=== PATIENT | female | born 1955 | race Caucasian/White ===

== ENCOUNTER 2016-12-03 07:44 | Observation (INO) ==
[2016-12-03] MEDS ORDERED: Ondansetron 4 MG/2 ML VIAL ONE (07:53)
[2016-12-03] MEDS ORDERED: *HR* Morphine 2 MG/ML SYRINGE IVP ONE (07:55)
[2016-12-03] MEDS ORDERED: 0.9 % Sodium Chloride 1,000 ML IVC ONE ×2 (07:55→08:58)
[2016-12-03] MEDS ORDERED: Metoclopramide 10 MG/2 ML VIAL IVP ONE (07:58)
[2016-12-03 08:01] LABS: Basophils # 0.1 K/mcL (0.0-0.2); Basophils % 0.6 %; Eosinophils # 0.2 K/mcL (0.0-0.6); Eosinophils % 1.6 %; Hematocrit 41.6 % (35.3-44.9); Hemoglobin 13.3 g/dL (11.5-15.4); Immature Granulocytes % 0.5 % (0-4); Lymphocytes # 2.1 K/mcL (0.6-4.6); Mean Corpuscular Hemoglobin 25.6 pg (28.0-33.3); Mean Corpuscular Volume 80.2 fL (83.0-100.0); Mean Platelet Volume 9.2 fL (9.4-12.4); Monocytes # 0.7 K/mcL (0.0-1.3); Monocytes % 5.9 %; Neutrophils # 9.2 K/mcL (1.6-8.9); Platelet Count 329 K/mcL (140-400); Red Blood Count 5.19 M/mcL (3.82-4.97); Red Cell Distribution Width 14.2 % (11.5-14.5); Segmented Neutrophils % 74.4 %
--- NOTE | 2016-12-03 08:01 | Emergency Department Note ---
Disposition Clinical Impression: Abdominal pain Qualifiers: Abdominal location: unspecified location Qualified Code(s): R10.9 - Unspecified abdominal pain Nausea & vomiting Qualifiers: Vomiting type: unspecified Vomiting Intractability: unspecified Qualified Code( s): R11.2 - Nausea with vomiting, unspecified Disposition: Admitted As Inpatient Condition: Fair Abdominal Pain HPI - General Chief Complaint: ED Abdominal Pain Stated Complaint: ABD pain Time Seen by Provider: 12/03/16 07:48 Source: patient, family Mode of arrival: ambulatory Limitations: no limitations Nursing Notes Reviewed: Yes Vital Signs Reviewed: Yes - History of Present Illness HPI Narrative: Patient here for evaluation of abdominal pain that started yesterday. Patient has had severe nausea and vomiting all night. Patient has had one episode of diarrhea. No blood in vomit or diarrhea. Patient states she has never had anything quite like this before. Patient has history of colitis and there is concern by her family member that she may have ulcerative colitis. Patient was recently started 2 days ago on metformin. No sick contacts. Appendectomy and hysterectomy in the past. Bradycardic on exam with no anti-hypertensives likely be responsible. Patient does complain of significant dizziness. Pain Scale: 10 - Related Data Home Medications Medication Instructions Recorded Confirmed Aspirin 162 mg PO DAILY 10/26/15 12/03/16 Citalopram [CeleXA] 60 mg PO DAILY 10/26/15 12/03/16 Omeprazole 20 mg PO DAILY 10/26/15 12/03/16 Simvastatin [Zocor] 40 mg PO HS 10/26/15 12/03/16 hydroCHLOROthiazide 25 mg PO DAILY 10/26/15 12/03/16 [Hydrochlorothiazide] Multivits Min/Iron/FA/Herb#186 1 tab PO DAILY 11/05/15 12/03/16 [Hair, Skin and Nails Caplet] Budesonide [Entocort EC] 3 mg PO DAILY 12/03/16 12/03/16 Cholecalciferol (D-3) [Vitamin D] 1,000 unit PO DAILY 12/03/16 12/03/16 Metformin HCl [Metformin HCl ER] 500 mg PO DAILY 12/03/16 12/03/16 Allergies Allergy/AdvReac Type Severity Reaction Status Date / Time ciprofloxacin [From Cipro] AdvReac Anxiety Verified 12/03/16 09:57 Review of Systems: CONSTITUTIONAL: Diaphoresis, weakness, and fatigue No weight loss, fever, chills, . HEENT: Eyes: No visual changes. Ears, Nose, Throat: No hearing loss, difficulty talking or unable to swallow. SKIN: No rash or itching. CARDIOVASCULAR: No chest pain, chest pressure or chest discomfort. No palpitations or edema. RESPIRATORY: No shortness of breath, cough or sputum. GASTROINTESTINAL: Abdominal pain, nausea, vomiting GENITOURINARY: No burning on urination or hematuria. NEUROLOGICAL: No headache, dizziness, syncope, paralysis, ataxia, numbness or tingling in the extremities. No change in bowel or bladder control. MUSCULOSKELETAL: No muscle pain, back pain, joint pain or stiffness. 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 conversant Eyes: anicteric sclerae, moist conjunctivae; PERRL HENT: Atraumatic; oropharynx clear with moist mucous membranes and no mucosal ulcerations Neck: Normal inspection; Trachea midline; FROM, supple Lungs: CTA, with normal respiratory effort and no intercostal retractions CV: RRR, no MRGs Abdomen: Soft, mild tenderness to the left lower quadrant; no rebound or gaurding Extremities: No peripheral edema or extremity lymphadenopathy Skin: Normal temperature; no rash, ulcers or lesions Psych: Appropriate mood and affect Neuro: alert and oriented to person, place and time - General Limitations: no limitations General appearance: alert - Expanded Neurological Exam Patient oriented to: Present: person, place, time Speech: Present: fluid speech Cranial nerves: EOM function (II, III, IV, ): Normal, facial sensation (V): Normal, facial palsy (VII): Normal, gag reflex (IX): Normal, spinal accessory function (XI): Normal, tongue deviation (XII): Normal Cerebellar function: finger to nose: Normal, heel to mcgill: Normal Motor strength - LUE: 5/5 Motor strength - RUE: 5/5 Motor strength - LLE: 5/5 Motor strength - RLE: 5/5 Sensory exam upper extremity: light touch: Normal Sensory exam lower extremity: light touch: Normal Coma Scale Eye Opening: Spontaneous Coma Scale Motor Response: Obeys Commands Coma Scale Verbal Response: Oriented Coma Scale Total: 15 Course Vital Signs Temperature 97.5 F L 12/03/16 07:46 Pulse Rate 60 12/03/16 07:46 Respiratory Rate 16 12/03/16 07:46 Blood Pressure 158/137 12/03/16 07:46 O2 Sat by Pulse Oximetry 100 12/03/16 07:46 Temperature 97.7 F 12/03/16 15:24 Pulse Rate 60 12/03/16 15:24 Respiratory Rate 16 12/03/16 15:24 Blood Pressure 112/76 12/03/16 15:24 O2 Sat by Pulse Oximetry 94 12/03/16 15:24 Oxygen Delivery Oxygen Delivery Nasal Cannula Abdominal Pain - Medical Records Medical records reviewed: Yes I reviewed the patient's medical records. - Lab Data Lab results reviewed: Yes I reviewed the patient's lab results. Result diagrams: 12/03/16 07:50 12/03/16 07:50 Lab Results 12/03/16 12/03/16 12/03/16 Range/Units 07:50 07:50 07:50 WBC 12.3 H (4.3-11.1) K/mcL RBC 5.19 H (3.82-4.97) M/mcL Hgb 13.3 (11.5-15.4) g/dL Hct 41.6 (35.3-44.9) % MCV 80.2 L (83.0-100.0) fL MCH 25.6 L (28.0-33.3) pg MCHC 32.0 (31.6-35.5) g/dL RDW 14.2 (11.5-14.5) % Plt Count 329 (140-400) K/mcL MPV 9.2 L (9.4-12.4) fL Immature Gran % 0.5 (0-4) % Seg Neutrophils % 74.4 % Lymphocytes % 17.0 % Monocytes % 5.9 % Eosinophils % 1.6 % Basophils % 0.6 % Neutrophils # 9.2 H (1.6-8.9) K/mcL Lymphocytes # 2.1 (0.6-4.6) K/mcL Monocytes # 0.7 (0.0-1.3) K/mcL Eosinophils # 0.2 (0.0-0.6) K/mcL Basophils # 0.1 (0.0-0.2) K/mcL Sodium 142 (136-145) mEq/L Potassium 3.5 (3.5-4.5) mEq/L Chloride 102 (98-109) mEq/L Carbon Dioxide 29 (19-29) mEq/L BUN 13 (7-20) mg/dL Creatinine 1.03 (0.57-1.11) mg/dL Est GFR ( Amer) > 60 (> 60) Est GFR (Non-Af Amer) 55 L (> 60) BUN/Creatinine Ratio 13 (6-26) Glucose 161 H (70-99) mg/dL Calculated Osmolality 298 (280-300) Lactic Acid 2.5 H (0.5-2.2) mmol/L Calcium 10.5 (8.6-10.8) mg/dL Total Bilirubin 0.9 (0.2-1.2) mg/dL Direct Bilirubin 0.3 (0.0-0.5) mg/dL Indirect Bilirubin 0.6 (0.0-1.2) mg/dL AST 30 (5-34) Units/L ALT 31 (0-55) Units/L Alkaline Phosphatase 100 (38-126) Units/L Troponin I (0-0.03) ng/mL Serum Total Protein 8.0 (6.0-8.3) g/dL Albumin 4.2 (3.5-5.0) g/dL Globulin 3.8 H (2.4-3.5) g/dL Albumin/Globulin Ratio 1.1 (1.1-2.2) Lipase 28 (8-78) Units/L Beta-Hydroxybutyric Acd 0.27 (0.02-0.27) mmol/L Urine Color (Yellow) Urine Clarity (Clear) Urine pH (5.0-8.0) pH Units Ur Specific [place] (1.010-1.025) Urine Protein (Neg-Trace) mg/dL Urine Glucose (UA) (Normal) mg/dL Urine Ketones (Negative) mg/dL Urine Blood (Negative) Urine Nitrite (Negative) Urine Bilirubin (Negative) Urine Urobilinogen (Normal) mg/dL Ur Leukocyte Esterase (Negative) Urine Microscopic RBC (0-3) per hpf Urine Microscopic WBC (0-3) per hpf Ur Squamous Epith Cells (None-Few) per lpf Urine Bacteria (None-Few) per hpf Hyaline Casts (None-Few) per lpf Ur Culture Indicated? (NO) Urine Test (Negative) 12/03/16 12/03/16 12/03/16 Range/Units 07:50 09:15 09:15 WBC (4.3-11.1) K/mcL RBC (3.82-4.97) M/mcL Hgb (11.5-15.4) g/dL Hct (35.3-44.9) % MCV (83.0-100.0) fL MCH (28.0-33.3) pg MCHC (31.6-35.5) g/dL RDW (11.5-14.5) % Plt Count (140-400) K/mcL MPV (9.4-12.4) fL Immature Gran % (0-4) % Seg Neutrophils % % Lymphocytes % % Monocytes % % Eosinophils % % Basophils % % Neutrophils # (1.6-8.9) K/mcL Lymphocytes # (0.6-4.6) K/mcL Monocytes # (0.0-1.3) K/mcL Eosinophils # (0.0-0.6) K/mcL Basophils # (0.0-0.2) K/mcL Sodium (136-145) mEq/L Potassium (3.5-4.5) mEq/L Chloride (98-109) mEq/L Carbon Dioxide (19-29) mEq/L BUN (7-20) mg/dL Creatinine (0.57-1.11) mg/dL Est GFR ( Amer) (> 60) Est GFR (Non-Af Amer) (> 60) BUN/Creatinine Ratio (6-26) Glucose (70-99) mg/dL Calculated Osmolality (280-300) Lactic Acid (0.5-2.2) mmol/L Calcium (8.6-10.8) mg/dL Total Bilirubin (0.2-1.2) mg/dL Direct Bilirubin (0.0-0.5) mg/dL Indirect Bilirubin (0.0-1.2) mg/dL AST (5-34) Units/L ALT (0-55) Units/L Alkaline Phosphatase (38-126) Units/L Troponin I 0.00 (0-0.03) ng/mL Serum Total Protein (6.0-8.3) g/dL Albumin (3.5-5.0) g/dL Globulin (2.4-3.5) g/dL Albumin/Globulin Ratio (1.1-2.2) Lipase (8-78) Units/L Beta-Hydroxybutyric Acd (0.02-0.27) mmol/L Urine Color Yellow (Yellow) Urine Clarity Clear (Clear) Urine pH 7.5 (5.0-8.0) pH Units Ur Specific [place] > 1.030 H (1.010-1.025) Urine Protein Trace (Neg-Trace) mg/dL Urine Glucose (UA) Normal (Normal) mg/dL Urine Ketones Negative (Negative) mg/dL Urine Blood Negative (Negative) Urine Nitrite Negative (Negative) Urine Bilirubin Negative (Negative) Urine Urobilinogen Normal (Normal) mg/dL Ur Leukocyte Esterase Negative (Negative) Urine Microscopic RBC 0-3 (0-3) per hpf Urine Microscopic WBC 0-3 (0-3) per hpf Ur Squamous Epith Cells Moderate H (None-Few) per lpf Urine Bacteria None Seen (None-Few) per hpf Hyaline Casts None Seen (None-Few) per lpf Ur Culture Indicated? NO (NO) Urine Test Negative (Negative) - Radiology Data Radiology results reviewed: Yes I reviewed the patient's radiology results. - EKG Data EKG attestation: Yes I reviewed and interpreted this EKG. EKG results narrative: EKG shows sinus bradycardia. Ventricular rate of 59. Patient has new Q waves in 2 as well as the lateral leads V6 and V5. There are no ST elevations or depressions. No other abnormalities other than the bradycardia noted from previous EKG of 10/29/16
[2016-12-03] MEDS ORDERED: Ondansetron 4 MG/2 ML VIAL IVP ONE (08:04)
--- NOTE | 2016-12-03 08:08 | Emergency Department Note ---
START Narrative - START START: I examined this patient and my medical decision-making was reviewed with the LOGGING WORKER/PA/Advanced Practice Nurse/Resident Physician. I agree with the documented findings, disposition and treatment plan as described except to the extent set forth below. ED attending note: Patient seen with emergency medicine resident Dr. Reddy. Please see a copy of his note for details of the H&P, evaluation, management and disposition of this patient. We independently had [id number] contact with the patient Briefly: [id number] female history of colitis presents with abdominal pain and vomiting. Abdomen surgically benign. Afebrile and bradycardic. Patient getting parenteral IV fluids and antiemetics and analgesics. Screening labs and abdominal pelvic CT scan pending. Disposition pending
[2016-12-03 08:16] LABS: Alanine Aminotransferase 31 Units/L (0-55); Albumin 4.2 g/dL (3.5-5.0); Albumin/Globulin Ratio 1.1 (1.1-2.2); Alkaline Phosphatase 100 Units/L (38-126); Aspartate Amino Transferase 30 Units/L (5-34); BUN/Creatinine Ratio 13 (6-26); Bilirubin,Direct 0.3 mg/dL (0.0-0.5); Bilirubin,Indirect 0.6 mg/dL (0.0-1.2); Bilirubin,Total 0.9 mg/dL (0.2-1.2); Blood Urea Nitrogen 13 mg/dL (7-20); Calcium 10.5 mg/dL (8.6-10.8); Carbon Dioxide 29 mEq/L (19-29); Chloride 102 mEq/L (98-109); Globulin 3.8 g/dL (2.4-3.5); Glucose 161 mg/dL (70-99); Lipase 28 Units/L (8-78); Osmolality,Calculated 298 (280-300); Potassium 3.5 mEq/L (3.5-4.5); Sodium 142 mEq/L (136-145); eGFR For African Americans > 60 (> 60); eGFR For Non-African Americans 55 (> 60)
[2016-12-03 08:27] LABS: Beta-Hydroxybutyric Acid 0.27 mmol/L (0.02-0.27)
[2016-12-03] MEDS ORDERED: Dexamethasone 4 MG/ML VIAL IVP ONE (09:30)
[2016-12-03 09:31] LABS: Bilirubin,Urine Negative (Negative); Blood,Urine Negative (Negative); Clarity,Urine Clear (Clear); Color,Urine Yellow (Yellow); Glucose,Urine (UA) Normal (Normal); Ketones,Urine Negative (Negative); Leukocyte Esterase,Urine Negative (Negative); Nitrite,Urine Negative (Negative); PH,Urine 7.5 pH Units (5.0-8.0); Protein,Urine Trace mg/dL (Neg-Trace); Specific Gravity,Urine > 1.030 (1.010-1.025); Urobilinogen,Urine Normal (Normal)
[2016-12-03 09:36] LABS: Bacteria,Urine None Seen per hpf (None-Few); Hyaline Casts,Urine None Seen per lpf (None-Few); RBC,Urine 0-3 per hpf (0-3); Squamous Epithelial Cell,Urine Moderate per lpf (None-Few); WBC,Urine 0-3 per hpf (0-3)
[2016-12-03] MEDS ORDERED: *HR* Promethazine 25 MG/ML VIAL IVP PRN (11:09)
[2016-12-03] MEDS ORDERED: Ondansetron 4 MG/2 ML VIAL IVP PRN (11:09)
[2016-12-03] MEDS ORDERED: Naloxone 0.4 MG/ML INJ IVP PRN (11:09)
--- NOTE | 2016-12-03 11:11 | Internal Med History&Physical ---
Date of Encounter: 12/03/16 Time of Encounter: 10:30 Assessment and Plan (1) Nausea & vomiting Current visit: Yes Status: Acute Unclear etiology. differential include BPPV, ACS, TIA. First troponin is negative. EKG reviewed by me and shows sins bradycardia HR 59. CTAP is unremarkable. Stat meclizine and CT head. IV fluids. serial troponin. quality assurance monitor. antiemetics prn. Qualifiers: Vomiting type: unspecified Vomiting Intractability: unspecified Qualified Code(s): R11.2 - Nausea with vomiting, unspecified (2) Vertigo Current visit: Yes Status: Acute r/o CVA. no hearing loss. no tinnitus. check CT head. meclizine prn. Nena maneuver to relief symptoms. neuro-checks. (3) Dehydration Current visit: No Status: Acute IV fluids. close monitor. (4) Lactic acidosis Current visit: Yes Status: Acute secondary to dehydration. iv fluids. repeat lactic acid. (5) HTN (hypertension) Current visit: Yes Status: Chronic BP on admission 158/107. hydralazine prn. Qualifiers: Hypertension type: essential hypertension Qualified Code(s): I10 - Essential (primary) hypertension Internal Medicine - H&P: HPI Chief complaint: nausea, vomiting and veritgo since 4.30 am Admitted From: Home Plans for Post Hospital Care: Home History of present illness: Ms. Rogers is a 61 year old female with past medical history of HTN, DM on metformin and ulcerative colitis who was feeling sick since yesterday afternoon with generalized malaise but went to bed and fell asleep. This morning at 4.30 am, she woke up because of feeling sick, and she developed vertigo (room spinning around her), photophobia, nausea and one episode of non-bloody vomit. No focal deficit. Mild headache. No hearing loss. No fever. Minimal right-sided abdominal pain. No diarrhea. No bleeding. She had an upper respiratory infection a few weeks ago but symptoms have resolved. No cough, no UR symtoms. She had an episode of migraines years ago, only one time. In our ED, patient was nauseous and she received dexamethasone, reglan, morphine, zofran, and 1L NS. Now, she has mild diffuse headaches, and nausea. No vertigo upon questioning but when I lowered the bed-head down she developed vertigo and photophobia. Past Med Surg Social Fam HX - Past Medical History Medical history: GERD, hyperlipidemia, hypertension, other Psychiatric history: depression - Past Surgical History Surgical History: appendectomy, hysterectomy - Social History Smoking Status: Never smoker Smokeless Tobacco Status: No Alcohol use: rarely Drug use: none - Family History Mother Hx Family Cardiac Disorders: Yes (HTN, Hyperlipidemia) Hx Family Respiratory Disorders: No Hx Family Cancer: Yes (Uterine, colon, breast, ovarian.) Hx Family GI Disorders: Yes (GERD,) Hx Family Endocrine Disorder: No Hx Family Neuromuscular Disorders: No Hx Family Neurologic Disorders: No Hx Family HEENT Disorders: No Hx Family Autoimmune Disorders: No Father Hx Family Cardiac Disorders: Yes (SD, HTN, Quadruple bipass, Pacemaker, Hyperlipidemia) Hx Family Respiratory Disorders: Yes (COPD) Hx Family Cancer: Yes (Bladder) Hx Family Endocrine Disorder: Yes (DM) Hx Family Neuromuscular Disorders: No Hx Family Neurologic Disorders: No Hx Family HEENT Disorders: No Hx Family Autoimmune Disorders: No Internal Medicine - H&P: Meds Aspirin 162 mg PO DAILY 10/26/15 [History] Citalopram [CeleXA] 60 mg PO DAILY 10/26/15 [History] Omeprazole 20 mg PO DAILY 10/26/15 [History] Simvastatin [Zocor] 40 mg PO HS 10/26/15 [History] hydroCHLOROthiazide [Hydrochlorothiazide] 25 mg PO DAILY 10/26/15 [History] Multivits Min/Iron/FA/Herb#186 [Hair, Skin and Nails Caplet] 1 tab PO DAILY 06/10 [History] Budesonide [Entocort EC] 3 mg PO DAILY 12/03/16 [History] Cholecalciferol (D-3) [Vitamin D] 1,000 unit PO DAILY 12/03/16 [History] Metformin HCl [Metformin HCl ER] 500 mg PO DAILY 12/03/16 [History] Allergies ciprofloxacin [From Cipro] Adverse Reaction (Verified 12/03/16 09:57) Anxiety All Systems PM: A 10-system review of systems was performed and is negative for pertinent findings except as documented above in the HPI. - Constitutional Vitals: Temp Pulse Resp BP Pulse Ox 97.5 F L 59 16 146/93 96 12/03/16 10:29 12/03/16 10:29 12/03/16 10:29 12/03/16 10:29 12/03/16 10:29 General appearance: Present: cooperative, A&O X 3, pleasant, no acute distress, obese, answers questions appropriately - Eye Eye exam: Present: PERRL, sclera anicteric. Absent: nystagmus - Neck Neck exam general surgery: Present: supple, trachea midline - Respiratory Respiratory exam: Present: CTAB. Absent: wheezes - Cardiovascular Cardiovascular exam: Present: RRR - GI/Abdominal GI/Abdominal exam: Present: normal bowel sounds, soft. Absent: distended, tenderness - Extremities Exam Extremities exam: Absent: pedal edema - Back Exam Back exam: Absent: CVA tenderness (L), CVA tenderness (R) - Neurological Exam Neurological exam: Present: alert, CN II-XII intact, motor sensory deficit, oriented X3, no focal deficits, strengths equal and symetr throughout. Absent: pronater drift, facial droop, speech deficit Additional comments: gait not assessed. normal coordination. - Skin Skin exam: Absent: rash Internal Med - H&P Results - Labs CBC & Chem 7: 12/03/16 07:50 12/03/16 07:50
[2016-12-03] MEDS ORDERED: Dextrose Gel 15 GM PO PRN ×2 (11:30)
[2016-12-03] MEDS ORDERED: D5% in Water 1,000 ML IVC PRN (11:30)
[2016-12-03] MEDS ORDERED: *HR* Dextrose 50 % in Water (Syg) 50 ML SYRINGE IVP PRN (11:30)
[2016-12-03] MEDS ORDERED: hydrALAZINE 25 MG TABLET PO PRN (11:48)
[2016-12-03] MEDS: Aspirin 81 MG TAB.CHEW PO SCH (12:04)
[2016-12-03] MEDS: Pantoprazole 40 MG VIAL IVP SCH (12:04)
[2016-12-03] MEDS: Ringers Solution, Lactated 1,000 ML IVC SCH (12:08)
[2016-12-03] MEDS: Insulin LISPRO 300 UNITS/3 ML VIAL SQ SCH ×2 (12:32→18:10)
[2016-12-03] MEDS ORDERED: Insulin LISPRO 300 UNITS/3 ML VIAL SQ SCH (21:00)
[2016-12-04] MEDS: Acetaminophen 325 MG TABLET PO PRN ×2 (00:14→09:44)
[2016-12-04 03:30] LABS: Basophils % 0.1 %; Hematocrit 34.8 % (35.3-44.9); Immature Granulocytes % 0.5 % (0-4); Lymphocytes # 1.2 K/mcL (0.6-4.6); Lymphocytes % 10.5 %; Mean Corpuscular HGB Conc 31.3 g/dL (31.6-35.5); Mean Corpuscular Hemoglobin 25.5 pg (28.0-33.3); Mean Corpuscular Volume 81.5 fL (83.0-100.0); Mean Platelet Volume 9.3 fL (9.4-12.4); Monocytes # 0.5 K/mcL (0.0-1.3); Monocytes % 4.6 %; Neutrophils # 9.2 K/mcL (1.6-8.9); Platelet Count 251 K/mcL (140-400); Red Blood Count 4.27 M/mcL (3.82-4.97); Red Cell Distribution Width 14.4 % (11.5-14.5); Segmented Neutrophils % 84.3 %
[2016-12-04 03:31] LABS: INR 1.1; Prothrombin Time 11.8 Seconds (9.4-12.1)
[2016-12-04 03:33] LABS: Hemoglobin 10.9 g/dL (11.5-15.4)
[2016-12-04 03:41] LABS: BUN/Creatinine Ratio 10 (6-26); Blood Urea Nitrogen 8 mg/dL (7-20); Carbon Dioxide 27 mEq/L (19-29); Chloride 104 mEq/L (98-109); Glucose 126 mg/dL (70-99); Magnesium 1.8 mg/dL (1.6-2.6); Osmolality,Calculated 288 (280-300); Phosphorous 3.3 mg/dL (2.3-4.7); Potassium 3.9 mEq/L (3.5-4.5); Sodium 139 mEq/L (136-145); eGFR For African Americans > 60 (> 60); eGFR For Non-African Americans > 60 (> 60)
[2016-12-04] MEDS: Ringers Solution, Lactated 1,000 ML IVC SCH (04:18)
[2016-12-04 05:14] LABS: Hemoglobin A1C 5.7 %
[2016-12-04] MEDS: Insulin LISPRO 300 UNITS/3 ML VIAL SQ SCH (09:27)
[2016-12-04] MEDS: Aspirin 81 MG TAB.CHEW PO SCH (09:33)
[2016-12-04] MEDS: Pantoprazole 40 MG VIAL IVP SCH (09:33)
[2016-12-04 11:07] VITALS: BP 109/68
--- NOTE | 2016-12-04 11:45 | Discharge Summary ---
Date of Encounter: 12/05/16 Time of Encounter: 11:42 - Discharge Diagnosis (1) H/O Crohn's disease Priority: Secondary Status: Acute Comments: reports that she recently had a flare adn was starred on steroids by her PCP that she has just stooped denies abdominal pain, n/v. will recommend f/u with PCP. (2) HLD (hyperlipidemia) Priority: Secondary Status: Chronic Qualifiers: Hyperlipidemia type: unspecified Qualified Code(s): E78.5 - Hyperlipidemia , unspecified (3) HTN (hypertension) Priority: Secondary Status: Chronic Qualifiers: Hypertension type: essential hypertension Qualified Code(s): I10 - Essential (primary) hypertension (4) Vertigo Priority: Primary Status: Acute - Discharge Medications Prescriptions: Meclizine [Antivert] 12.5 mg PO TID 7 Days Home Medications: Aspirin 162 mg PO DAILY 10/26/15 [History] Citalopram [CeleXA] 60 mg PO DAILY 10/26/15 [History] Omeprazole 20 mg PO DAILY 10/26/15 [History] Simvastatin [Zocor] 40 mg PO HS 10/26/15 [History] hydroCHLOROthiazide [Hydrochlorothiazide] 25 mg PO DAILY 10/26/15 [History] Multivits Min/Iron/FA/Herb#186 [Hair, Skin and Nails Caplet] 1 tab PO DAILY 06/10 [History] Budesonide [Entocort EC] 3 mg PO DAILY 12/03/16 [History] Cholecalciferol (D-3) [Vitamin D] 1,000 unit PO DAILY 12/03/16 [History] Metformin HCl [Metformin HCl ER] 500 mg PO DAILY 12/03/16 [History] Meclizine [Antivert] 12.5 mg PO TID 7 Days 12/04/16 [Rx] Allergies/Adverse Reactions: Allergies ciprofloxacin [From Cipro] Adverse Reaction (Verified 12/03/16 09:57) Anxiety Procedures/tests Complete & Pending: Procedures Performed prior 72 hours Category Date Time Status CT head/brain wo con [CT] Routine Cat Scan 12/03/16 11:07 Completed Date of admission: 12/03/16 09:58 Primary care physician: Kortney Salas CNP Discharging clinician: Jeison Ravi Anticipated date of discharge: 12/04/16 - Patient Status Disposition: Home, Self-Care Condition: Fair Functional capacity at discharge: independent ambulation Overall status at discharge: patient is back to baseline - Discharge Instructions Instructions: Meclizine (By mouth) Follow Up With: Kortney Salas CNP [Primary Care Provider] - - Diet and Activity Activity: resume usual activities as tolerated Diet: advance to your usual diet Interval History: Ms. Rogers is a 61 year old female with past medical history of HTN, DM on metformin and ulcerative colitis who was feeling sick since yesterday afternoon with generalized malaise but went to bed and fell asleep. This morning at 4.30 am, she woke up because of feeling sick, and she developed vertigo (room spinning around her), photophobia, nausea and one episode of non-bloody vomit. No focal deficit. Mild headache. No hearing loss. No fever. Minimal right-sided abdominal pain. No diarrhea. No bleeding. She had an upper respiratory infection a few weeks ago but symptoms have resolved. No cough, no UR symtoms. She had an episode of migraines years ago, only one time. In our ED, patient was nauseous and she received dexamethasone, reglan, morphine, zofran, and 1L NS. CT head negative. troponin negative x2. repeat lactic acid is normal. Patient feels much better after receiving meclizine. She denies any positional vertigo, she had a negative Kamilla-Hallpike maneuver but she developed lightheadedness after maneuver. I taught her about Nena maneuver, she understood. continue meclizine 12.5 mg q6 hr and gentle IV fluid hydration. followed up next day and she said she feels better and tehh dizziness has more or less resolved she is being dc in stable condition with meclizine to f/u as oP. Hospital course: Ms. Rogers is a 61 year old female Time spent discussing smoking cessation with patient: more than 10 minutes - Time Spent with Patient Total time spent providing and/or coordinating discharge services: Greater than 30 minutes - Constitutional Vitals: Temp Pulse Resp BP Pulse Ox 98.4 F 57 16 109/68 94 12/04/16 11:06 12/04/16 11:06 12/04/16 11:06 12/04/16 11:06 12/04/16 11:06 General appearance: Present: cooperative, A&O X 3, pleasant, no acute distress, obese, answers questions appropriately Exam: Eye Eye exam: Present: PERRL, sclera anicteric. Absent: nystagmus - Neck Neck exam general surgery: Present: supple, trachea midline - Respiratory Respiratory exam: Present: CTAB. Absent: wheezes - Cardiovascular Cardiovascular exam: Present: RRR - GI/Abdominal GI/Abdominal exam: Present: normal bowel sounds, soft. Absent: distended, tenderness - Extremities Exam Extremities exam: Absent: pedal edema - Back Exam Back exam: Absent: CVA tenderness (L), CVA tenderness (R) - Neurological Exam Neurological exam: Present: alert, CN II-XII intact, motor sensory deficit, oriented X3, no focal deficits, strengths equal and symetr throughout. Absent: pronater drift, facial droop, speech deficit Additional comments: gait not assessed. normal coordination. - Skin Skin exam: Absent: rash
--- NOTE | 2016-12-05 08:14 | Electrocardiograph Report ---
[address] [place] [address] Test Date: 2016-12-03 Pat Name: Olga Rogers Department: 105 Room: 3A53 Gender: F Site Safety Coordinator: : 1955 Requested By: Shailesh Reddy Order Number: [id number] Reading MD: Paul Del Rio MD Measurements Intervals Raymond Rate: 59 P: 31 WA: 143 QRS: 40 QRSD: 101 T: 34 QT: 483 QTc: 483 Interpretive Statements SINUS BRADYCARDIA POSSIBLE INFERIOR MYOCARDIAL INFARCTION, PROBABLY OLD Electronically Signed On 12-05-2016 8:12:49 EDT by Paul Del Rio MD
== END 2016-12-04 12:48 | disposition home or self-care (01) ==
LOC: EMEROO 07:44 → 3ANU 07:44
PROVIDERS: ADMIT Internal Medicine; ATTEND Internal Medicine Endocrinology, Diabetes & Metabolism

== ENCOUNTER 2021-10-05 08:58 | Inpatient (IN) ==
[2021-10-05] MEDS ORDERED: 0.9 % Sodium Chloride 1,000 ML IVC ONE (09:33)
[2021-10-05] MEDS ORDERED: diazePAM 10 MG/2 ML SYRINGE IVP STA ×2 (09:36→14:04)
[2021-10-05 09:52] LABS: Hematocrit 40.9 % (35.3-44.9); Hemoglobin 13.8 g/dL (11.5-15.4); Immature Granulocytes % 0.8 % (0-4); Mean Corpuscular HGB Conc 33.7 g/dL (31.6-35.5); Mean Corpuscular Hemoglobin 28.6 pg (28.0-33.3); Mean Corpuscular Volume 84.9 fL (83.0-100.0); Mean Platelet Volume 9.2 fL (9.4-12.4); Platelet Count 289 K/mcL (140-400); Red Blood Count 4.82 M/mcL (3.82-4.97); Red Cell Distribution Width 13.3 % (11.5-14.5); Segmented Neutrophils % 64.8 %
[2021-10-05 09:53] LABS: Basophils # 0.1 K/mcL (0.0-0.2); Basophils % 0.9 %; Eosinophils # 0.2 K/mcL (0.0-0.6); Eosinophils % 2.5 %; Lymphocytes # 2.3 K/mcL (0.6-4.6); Monocytes # 0.5 K/mcL (0.0-1.3); Neutrophils # 5.8 K/mcL (1.6-8.9)
[2021-10-05 10:12] LABS: Alanine Aminotransferase 66 Units/L (7-52); Albumin 4.6 g/dL (3.5-5.7); Albumin/Globulin Ratio 1.8 (1.1-2.2); Alkaline Phosphatase 84 Units/L (34-104); Aspartate Amino Transferase 62 Units/L (13-39); BUN/Creatinine Ratio 16 (6-26); Bilirubin,Total 0.9 mg/dL (0.3-1.0); Blood Urea Nitrogen 12 mg/dL (8-23); Calcium 9.9 mg/dL (8.6-10.3); Carbon Dioxide 26 mEq/L (23-29); Chloride 101 mEq/L (98-107); Globulin 2.6 g/dL (2.4-3.5); Glucose 163 mg/dL (70-105); Magnesium 1.6 mg/dL (1.6-2.6); Osmolality,Calculated 293 (280-300); Potassium 3.5 mEq/L (3.5-5.1); Sodium 140 mEq/L (136-145); Total Protein 7.2 g/dL (6.4-8.9); Troponin I < 0.03 ng/mL (< 0.04); eGFR For African Americans > 60 (> 60); eGFR For Non-African Americans > 60 (> 60)
[2021-10-05 10:34] LABS: Prothrombin Time 11.4 Seconds (9.4-12.1)
[2021-10-05 10:36] LABS: Activated Partial Thrombo Time 29.7 Seconds (26.0-36.0)
[2021-10-05] MEDS ORDERED: Ketorolac 30 MG/ML VIAL IVP ONE (10:52)
[2021-10-05] MEDS ORDERED: Naloxone 0.4 MG/ML INJ IVP PRN (15:58)
[2021-10-05] MEDS ORDERED: *HR* Dextrose 50 % in Water (Syg) 50 ML SYRINGE IVP PRN (16:29)
[2021-10-05] MEDS ORDERED: D5% in Water 1,000 ML IVC PRN (16:29)
[2021-10-05] MEDS ORDERED: Dextrose 4 GM Chewable Tablets PO PRN ×2 (16:29)
[2021-10-05] MEDS: Insulin LISPRO 300 UNITS/3 ML VIAL SUBQ SCH (17:06)
[2021-10-05] MEDS ORDERED: Scopolamine Patch 1.5 MG PATCH.TD72 TD ONE (17:58)
[2021-10-05] MEDS: diazePAM 10 MG/2 ML SYRINGE IVP PRN (19:16)
[2021-10-06] MEDS: Acetaminophen 325 MG TABLET PO PRN ×3 (01:50→21:55)
[2021-10-06] MEDS: predniSONE 20 MG TABLET PO SCH (08:44)
[2021-10-06] MEDS: diazePAM 10 MG/2 ML SYRINGE IVP PRN (08:44)
[2021-10-06] MEDS: allopurinoL 100 MG TABLET PO SCH (08:44)
[2021-10-06] MEDS: Insulin LISPRO 300 UNITS/3 ML VIAL SUBQ SCH ×3 (08:56→16:52)
[2021-10-06] MEDS: Fluticasone Propionate Nasal 50 MCG/SPRAY BOTTLE NS SCH (09:58)
[2021-10-06] MEDS: hydroCHLOROthiazide 25 MG TABLET PO SCH (12:41)
[2021-10-06] MEDS: *HR* Heparin 5,000 UNIT/ML VIAL SQ SCH (16:51)
[2021-10-06] MEDS ORDERED: QUEtiapine Fumarate 25 MG TABLET PO SCH (21:00)
[2021-10-07] MEDS: *HR* Heparin 5,000 UNIT/ML VIAL SQ SCH (05:58)
[2021-10-07 06:53] VITALS: BP 138/73; PULSE 58; TEMP 98.2; O2SAT 97
[2021-10-07] MEDS: Insulin LISPRO 300 UNITS/3 ML VIAL SUBQ SCH (07:08)
[2021-10-07] MEDS: predniSONE 20 MG TABLET PO SCH (09:15)
[2021-10-07] MEDS: allopurinoL 100 MG TABLET PO SCH (09:15)
[2021-10-07] MEDS: hydroCHLOROthiazide 25 MG TABLET PO SCH (09:16)
[2021-10-07] MEDS: Fluticasone Propionate Nasal 50 MCG/SPRAY BOTTLE NS SCH (09:17)
== END 2021-10-07 11:29 | disposition home or self-care (01) | DRG 149 ==
LOC: 3BNU 08:58 → EMEROOARM 08:58 → SUATTDRO 15:38 → 3BNU 15:45
PROVIDERS: ADMIT Internal Medicine; ATTEND Internal Medicine